=== PATIENT | female | born 1990 | race Caucasian/White ===

== ENCOUNTER 2016-06-18 21:41 | Emergency (ER) | payer MEDICAID ==
[~2016-06-18] VITALS: Ht 162.6 cm; Wt 104.3 kg
[2016-06-18] MEDS ORDERED: HYDROcodone/ACETAMIN 7.5-325 MG TAB PO ONE (22:00)
--- NOTE | 2016-06-18 22:00 | NUR ---
Patient to ER bed 07 to gown for evaluation. Side rails up.
[2016-06-18 22:04] VITALS: BP 142/86; PULSE 84; RESP 16; TEMP 98.7; O2SAT 98
--- NOTE | 2016-06-18 22:05 | NUR ---
Pt brought by self, A&Ox4, pt went downstairs and twisted her right ankle, skin pink and warm, cap refill <3, VSS.
--- NOTE | 2016-06-18 22:05 | NUR ---
Vanessa Gonzalez TUB MENDER at bedside examining patient
--- NOTE | 2016-06-18 22:59 | NUR ---
Note jo annjose in EDM - 06/18/16 at 2317 by [email or web address] Patient given written and verbal discharge instructions and verbalizes understanding. ER discussed with patient the results and treatment provided. Patient in stable condition. ID arm band removed. Rx of Prednisone given. Patient educated on pain management and to follow up with PMD. Pain Scale 0/10 Opportunity for questions provided and answered.
[2016-06-18 23:05] VITALS: BP 135/86; PULSE 82; RESP 16; TEMP 98.5; O2SAT 98
--- NOTE | 2016-06-18 23:05 | NUR ---
Patient given written and verbal discharge instructions and verbalizes understanding. ER DIABETES MANAGER Vanessa Gonzalez discussed with patient the results and treatment provided. Patient in stable condition. ID arm band removed. Rx of Motrin 800 mg given. Patient educated on pain management and to follow up with PMD. Pain Scale 3/10 Opportunity for questions provided and answered.
== END 2016-06-18 23:05 | disposition home or self-care (01) ==
LOC: SED 21:41
DX: S93.491A Sprain of other ligament of right ankle, initial encounter (principal); R03.0 Elevated blood-pressure reading, without diagnosis of hypertension; W18.40XA Slipping, tripping and stumbling without falling, unspecified, initial encounter; Y93.01 Activity, walking, marching and hiking; Y92.89 Other specified places as the place of occurrence of the external cause; Y99.8 Other external cause status
CPT/HCPCS: 81025; 99284

== ENCOUNTER 2017-10-15 18:46 | Emergency (ER) | payer MEDICAID ==
[~2017-10-15] VITALS: Ht 162.6 cm; Wt 110.2 kg
[2017-10-15 19:02] VITALS: BP_SYST 149
[2017-10-15] MEDS ORDERED: ACETAMINOPHEN/CODEINE 300 MG-30 MG TABLET PO ONE (20:30)
[2017-10-15 20:52] LABS: BILIRUBIN,URINE NEGATIVE (NEGATIVE); BLOOD, URINE NEGATIVE (NEGATIVE); CLARITY/URINE SL CLOUDY (CLEAR); COLOR,URINE YELLOW (YELLOW); GLUCOSE,URINE NEGATIVE (NEGATIVE); KETONES,URINE TRACE (NEGATIVE); LEUKOCYTE ESTERASE ,URINE TRACE (NEGATIVE); NITRITE, URINE NEGATIVE (NEGATIVE); PH,URINE 5.5 (5.0-8.0); PROTEIN URINE TRACE (NEGATIVE)
[2017-10-15 21:01] LABS: BACTERIA,URINE MODERATE /HPF (None Seen); CALCIUM OXALATE CRYSTALS,UR 0-10 /HPF (None Seen); MUCUS,URINE 2+ /LPF (None Seen); RBC,URINE 0-3 /HPF (0-3)
[2017-10-15 21:06] VITALS: BP_SYST 132
== END 2017-10-15 21:06 | disposition home or self-care (01) ==
LOC: SED 18:46
DX: S39.012A Strain of muscle, fascia and tendon of lower back, initial encounter (principal); F17.210 Nicotine dependence, cigarettes, uncomplicated; R03.0 Elevated blood-pressure reading, without diagnosis of hypertension; Z71.6 Tobacco abuse counseling; V89.2XXA Person injured in unspecified motor-vehicle accident, traffic, initial encounter; Y93.89 Activity, other specified; Y92.89 Other specified places as the place of occurrence of the external cause; Y99.8 Other external cause status
CPT/HCPCS: 72100-TC; 81000-TC; 87086; 99285

== ENCOUNTER 2018-07-16 21:52 | Emergency (ER) | payer MEDICAID ==
[~2018-07-16] VITALS: Ht 162.6 cm; Wt 115.7 kg
[2018-07-16 22:18] VITALS: BP_SYST 127
--- NOTE | 2018-07-16 22:20 | NUR ---
Patient to ER bed 8 for evaluation.
--- NOTE | 2018-07-16 22:25 | NUR ---
Patient to ER via triage for evaluation of sore throat with reported fevers at home, no fever noted while being triaged. Patient reports last medicated yesterday. Patient is awake, alert and oriented in no acute distress, vital signs stable, respirations even and unlabored, skin warm and dry to touch. Patient able to ambulate without difficulty to bed 8 with slow, steady gait. Awaiting evaluation by ER MD, will continue to observe and assess.
--- NOTE | 2018-07-16 22:54 | NUR ---
ER at bedside examining patient.
[2018-07-16] MEDS ORDERED: AMOXICILLIN 500 MG CAPSULE PO ONE (23:15)
--- NOTE | 2018-07-16 23:15 | NUR ---
Patient given written and verbal discharge instructions and verbalizes understanding. ER MD discussed with patient the results and treatment provided. Patient in stable condition. ID arm band removed. Rx of Amoxicillin given. Patient educated on pain management and to follow up with PMD. Pain Scale 0. Opportunity for questions provided and answered. Medication side effect fact sheet provided. Patient left ER in no acute distress, no adverse reaction noted to medication.
== END 2018-07-16 23:15 | disposition home or self-care (01) ==
LOC: SED 21:52
DX: J02.9 Acute pharyngitis, unspecified (principal); F17.200 Nicotine dependence, unspecified, uncomplicated; Z71.6 Tobacco abuse counseling
CPT/HCPCS: 99283

== ENCOUNTER 2019-05-05 17:59 | Emergency (ER) | payer MEDICAID ==
[~2019-05-05] VITALS: Ht 162.6 cm; Wt 113.4 kg
[2019-05-05 18:46] VITALS: BP_SYST 136
[2019-05-05 19:19] LABS: BILIRUBIN,URINE NEGATIVE (NEGATIVE); BLOOD, URINE 3+ (NEGATIVE); CLARITY/URINE CLEAR (CLEAR); COLOR,URINE YELLOW (YELLOW); GLUCOSE,URINE NEGATIVE (NEGATIVE); KETONES,URINE NEGATIVE (NEGATIVE); LEUKOCYTE ESTERASE ,URINE TRACE (NEGATIVE); NITRITE, URINE NEGATIVE (NEGATIVE); PROTEIN URINE NEGATIVE (NEGATIVE)
[2019-05-05 20:07] LABS: BASOPHILS % (AUTO) 0.5 % (0.0-2.0); EOSINOPHILS # (AUTO) 0.2 K/uL (0.0-0.4); EOSINOPHILS % (AUTO) 2.9 % (0.0-4.0); HEMOGLOBIN 12.2 g/dL (12.0-16.0); LYMPHOCYTES % (AUTO) 23.6 % (20.5-51.5); MEAN CORPUSCULAR HEMOGLOBIN 29 pg (27-31); MEAN CORPUSCULAR HGB CONC 34 % (32-36); MEAN CORPUSCULAR VOLUME 87 fL (79.0-98.0); MONOCYTES # (AUTO) 0.4 K/uL (0.0-1.0); MONOCYTES % (AUTO) 4.2 % (1.7-9.3); NEUTROPHILS # (AUTO) 5.9 K/uL (1.8-7.7); NEUTROPHILS % (AUTO) 68.8 % (40.0-70.0); PLATELET COUNT (AUTO) 315 K/uL (130-430); RED BLOOD CELL COUNT(AUTO) 4.15 MIL/uL (4.2-6.2); RED CELL DISTRIBUTION WIDTH 14.4 % (9.0-15.0); WHITE BLOOD COUNT (AUTO) 8.5 K/uL (4.8-10.8)
[2019-05-05 20:34] LABS: BACTERIA,URINE RARE /HPF (None Seen)
[2019-05-05 21:40] VITALS: BP_SYST 138
== END 2019-05-05 21:40 | disposition home or self-care (01) ==
LOC: SED 17:59
DX: O20.0 Threatened abortion (principal); O23.41 Unspecified infection of urinary tract in pregnancy, first trimester; F17.290 Nicotine dependence, other tobacco product, uncomplicated; Z3A.01 Less than 8 weeks gestation of pregnancy
CPT/HCPCS: 36415; 76801; 76817; 81000-TC; 81025; 84702-TC; 85025; 86901; 99284

== ENCOUNTER 2023-10-11 11:39 | Emergency (ER) | payer MEDICAID ==
[~2023-10-11] VITALS: Ht 162.6 cm; Wt 113.9 kg
[2023-10-11 11:44] VITALS: BP_SYST 133; PULSE 104; RESP 20; TEMP 98.9; O2SAT 97
[2023-10-11 12:50] LABS: BASOPHILS % (AUTO) 0.3 % (0.0-2.0); EOSINOPHILS # (AUTO) 0.1 K/uL (0.0-0.4); EOSINOPHILS % (AUTO) 1.2 % (0.0-4.0); HEMATOCRIT 35.7 % (36-48); HEMOGLOBIN 11.7 g/dL (12.0-16.0); LYMPHOCYTES # (AUTO) 1.9 K/uL (1.0-5.5); LYMPHOCYTES % (AUTO) 18.4 % (20.5-51.5); MEAN CORPUSCULAR HEMOGLOBIN 27 pg (27-31); MEAN CORPUSCULAR HGB CONC 33 % (32-36); MEAN CORPUSCULAR VOLUME 82 fL (79.0-98.0); MONOCYTES # (AUTO) 0.3 K/uL (0.0-1.0); NEUTROPHILS % (AUTO) 77.1 % (40.0-70.0); PLATELET COUNT (AUTO) 404 K/uL (130-430); RED BLOOD CELL COUNT(AUTO) 4.37 MIL/uL (4.2-6.2); RED CELL DISTRIBUTION WIDTH 14.6 % (9.0-15.0); WHITE BLOOD COUNT (AUTO) 10.3 K/uL (4.8-10.8)
[2023-10-11 13:11] LABS: ALBUMIN 3.7 g/dL (3.4-4.8); BILIRUBIN,DIRECT 0.1 mg/dL (0.0-0.3); CALCIUM 8.8 mg/dL (8.4-11.0); CREATININE 0.81 mg/dL (0.55-1.30); POTASSIUM 3.8 mmol/L (3.5-5.1); TOTAL BILIRUBIN 0.4 mg/dL (0.0-1.0); TOTAL PROTEIN, SERUM 7.8 g/dL (6.4-8.3)
[2023-10-11] MEDS: NACL 0.9% 1,000 ML IV ONE (13:30)
[2023-10-11 14:04] VITALS: BP_SYST 139; PULSE 76; RESP 20; TEMP 98.4; O2SAT 98
== END 2023-10-11 14:04 | disposition home or self-care (01) ==
LOC: SED 11:39
DX: R10.32 Left lower quadrant pain (principal); K50.90 Crohn's disease, unspecified, without complications
CPT/HCPCS: 99285; 74177; 96360; 80076; 80048; 85025; 36415; 81025; J7030